=== PATIENT | female | born 1945 | race Caucasian/White ===

== ENCOUNTER 2019-08-18 14:43 | Inpatient (IN) | payer MEDICARE, OTHER ==
[~2019-08-18] VITALS: Ht 157.4 cm; Wt 71.7 kg
[2019-08-18] MEDS ORDERED: BISACODYL LAXATI5 MG PO (15:05)
[2019-08-18] MEDS ORDERED: NATURE'S BLEND F1 MG PO (15:07)
[2019-08-18] MEDS ORDERED: NEXIUM 24HR20 M2 PO (15:07)
[2019-08-18] MEDS ORDERED: LASIX20 MG PO (15:08)
[2019-08-18] MEDS ORDERED: LEVOTHYROXINE50 MCG PO (15:10)
[2019-08-18] MEDS ORDERED: LISINOPRIL20 MG PO (15:11)
[2019-08-18] MEDS ORDERED: METHOTREXATE2.5 M1 PO (15:13)
[2019-08-18] MEDS ORDERED: TREXALL5 MG PO (15:15)
[2019-08-18] MEDS ORDERED: DICYCLOMINE HCL10 MG PO (15:17)
[2019-08-18] MEDS ORDERED: ALL DAY RELIEF220 MG PO (15:18)
[2019-08-18] MEDS ORDERED: HYDROCODONE-AC1 EAC1 PO (15:21)
[2019-08-18] MEDS ORDERED: BASAG SOL SC (15:22)
[2019-08-18] MEDS ORDERED: REMERON15 M2 PO (15:24)
[2019-08-18] MEDS ORDERED: KLOR-CON 1010 ME1 PO (15:25)
[2019-08-18] MEDS ORDERED: REQUIP0.25 M1 PO (15:27)
[2019-08-18] MEDS ORDERED: VITAMIN D50000 UNIT PO (15:28)
[2019-08-18] MEDS ORDERED: DULCOLAX STOOL100 MG PO (15:31)
[2019-08-18] MEDS ORDERED: HYDROCORTISON28.4 G4 T (15:32)
[2019-08-18] MEDS ORDERED: METOPROLOL25 MG PO (15:33)
[2019-08-18] MEDS ORDERED: ROPINIROLE HY0.25 MG PO (15:34)
[2019-08-18] MEDS ORDERED: DEPAKOTE SPRIN125 MG PO (15:37)
[2019-08-18] MEDS ORDERED: NOVOLOG MIX 70/33 ML SC (15:42)
[2019-08-18 19:44] VITALS: BP 146/65
--- NOTE | 2019-08-18 19:44 | NUR ---
NICOLÁS GUTIERREZ a 73 year old F admitted VOLUNTARY via stretcher from the [facility] as a voluntary admission. Arrived on unit at 1944. ALLERGIES: LATEX, CYMBALTA, FLU VACCINE. Vital signs are: [id number] 146/65. The client signed the following forms with stated understanding: Authorization For The Release of Medical Information, Consent to Voluntary, Admission and Hospitalization, Consent and Release Forms/Receipt of Rights, Acknowledgement of Advance Directive Information, Behavioral Health Consent Form, and Informed Consent of Medications. Admitted under the services of Dr. DILEEP SAMUELS,[facility]. A search was conducted and hazardous articles were removed. Client was oriented to the unit. JOHNSON CHAN
[2019-08-18 20:00] VITALS: BP 146/65
--- NOTE | 2019-08-18 21:51 | NUR ---
HOSPITALIST CALLED AT [phone], UPDATED ON NEW ADMISSION AND MED REC COMPLETE READY FOR REVIEW. STATED TO PLACE CONSULT UNDER LYN AQUINO. NO OTHER ORDERS RECIEVED.
--- NOTE | 2019-08-18 23:00 | NUR ---
ON FLOOR, UPDATED PROVIDED. DR. ORLANDO ALSO NOTIFIED OF PATIENT USING O2 2L NC PRN AT HS, STATED TO CONTINUE ORDERED. ALSO UPDATED ON REDDENED AREA NOTED BELOW RIGHT EYE WITH SMALL PIN POINT OPENING OF: LENGTH-0.2, WIDTH-0.1, DEPTH <0.01. PT STATED SHE HAS HAD IT FOR A WHILE AND USUALLY PUTS WARM COMPRESSES ON IT. NO SIGNS OR SYMPTOMS OF INFECTION OR PAIN NOTED. REMAINING SKIN ASSESSMENT COMPLETED WITHOUT DIFFICULTY, NO OTHER OPEN AREAS OBSERVED. AWAITING WOUND ORDERS AT THIS TIME.
--- NOTE | 2019-08-19 00:36 | NUR ---
PT RECEIVED PRN TYLENOL 650MG PO REQUESTED FOR C/O OF PAIN IN LEGS AND BACK WITH RATING OF 8/10. NO OTHER COMPLAINTS NOTED.
--- NOTE | 2019-08-19 00:37 | NUR ---
PATIENT RECEIVED 3 UNITS FOR BSG OF 217 ORDERED PER AT THIS TIME.
--- NOTE | 2019-08-19 05:58 | NUR ---
PT COOPERATIVE WITH ADMISSION ASSESSMENT. PT ALERT AND ORIENTED X4. PT CALM WITH UNDERLYING IRRITABILITY STATING "THE NURSE AT THE OTHER FACILITY YELLED AT ME, SO I YELLED BACK, IT UPSET ME, SO THEY SENT ME HERE BECAUSE OF IT AND I GUESS TO HAVE MY MEDICATIONS ADJUSTED". PT AMBULATORY WITH A WALKER, GAIT STEADY, STAND BY ASSIST WITH ADLS. PT ABLE TO MAKE NEEDS KNOWN, CONTINENT OF BOWEL AND BLADDER. PT DENIES SUICIDAL IDEATIONS STATING "IM NOT SUICIDAL AT ALL BUT IF I DIDNT WAKE UP IN THE MORNING IM OKAY WITH THAT BECAUSE I WOULD BE WITH RITA AND THE ANGELS". PT CONTRACTED FOR SAFETY STATING "I KNOW I HAVE A HISTORY OF SUICIDE ATTEMPTS BUT I WOULDNT DO THAT AGAIN, THAT WAS A DIFFERENT TIME FOR ME, I WOULD NEVER HURT MYSELF, ILL GO WHEN GOD SAYS ITS MY TIME". PT DENIES HI, HALLUCINATIONS, AND DELUSIONS. NO PARANOIA OBSERVED. PT REFUSED HS DOSE OF REMERON STATING IT CAUSED HER TO HAVE HALLUCINATIONS IN THE PAST AND WILL NOT TAKE IT ANYMORE. PT COMPLIANT WITH REMAINING MEDICATIONS WITHOUT DIFFICULTY. BRACE LOCATED ON LEFT WRIST DUE TO A HX OF A FRACTURE IN FEBRUARY AND CARPEL TUNNEL PER PT, AWARE. SEE WOUND SCREEN FOR SKIN ASSESSMENT. NO ADDITIONAL COMPLAINTS OF PAIN NOTED SINCE ADMINISTRATION OF TYLENOL AT 0036, PRN EFFECTIVE. SLEPT APPROX 5 HOURS WITH X1 BRIEF AWAKENING. NO SIGNS OR SYMPTOMS OF DISTRESS NOTED.
[2019-08-19 07:32] LABS: BASO % 0.7 % (0.0-1.0); EOS # 0.1 10*3/uL (0.0-0.4); EOS % 2.6 % (1.0-4.0); HEMATOCRIT 31.1 % (37.0-47.0); HEMOGLOBIN 9.4 g/dl (12.0-16.0); LYMPH # 1.2 10*3/uL (1.3-4.4); LYMPH % 24.9 % (27.0-41.0); MEAN CELL VOLUME 95.4 fl (81.0-99.0); MEAN CORPUSCULAR HGB 28.8 pg (27.0-31.0); MEAN CORPUSCULAR HGB CONC 30.2 g/dl (33.0-37.0); MEAN PLATELET VOLUME 10.7 fl (9.6-12.3); MONO # 0.3 10*3/uL (0.1-1.0); MONO % 7.4 % (3.0-9.0); NEUT % 64.2 % (47.0-73.0); PLATELET COUNT AUTOMATED 125 10*3/uL (130-400); RED BLOOD COUNT 3.26 10*6/uL (4.10-5.10); RED CELL DISTRI WIDTH 14.7 % (0-14.5); WHITE BLOOD COUNT 4.6 10*3/uL (4.8-10.8)
[2019-08-19 08:00] VITALS: BP 148/77
--- NOTE | 2019-08-19 08:00 | NUR ---
Patient eating breakfast quietly with no c/o discomfort. Respirations easy and regular. Vital signs stable. No overt distress. AGUS HENDRICKSON
[2019-08-19 08:01] LABS: ALBUMIN 2.9 gm/dl (3.1-4.5); CREATININE 1.24 mg/dL (0.55-1.02); POTASSIUM 4.5 mmol/L (3.5-5.1); TOTAL PROTEIN 6.7 gm/dL (6.4-8.2)
[2019-08-19 08:10] LABS: THYROID STIM HORMONE (HS) 2.92 uIU/ml (0.358-4.75); VALPROIC ACID (DEPAKENE) 35.4 ug/ml (50-100)
--- NOTE | 2019-08-19 09:27 | NUR ---
PT APPEARS PREOCCUPIED WITH NURSE AT FACILITY AND OTHER RESIDENTS. PT STATES THAT "THIS ONE NURSE CAME INTO MY ROOM AND CALLED ME A PIECE OF CRAP AND SAID I THOUGHT I WAS BETTER THAN EVERYONE ELSE. SO I THINK THEY SENT ME HERE A COVER UP. LIT, THE DIRECTOR, WANTS ME TO APOLOGIZE BECAUSE HE SAID I SHOULDN'T RUIN HER 35 YEAR CAREER, BUT I JUST WANT TO SEE HER DISCIPLINED" PT ALSO STATES THAT "OTHER TENANTS GET MAD BECAUSE I LIVE IN AN APARTMENT, NOT JUST A ROOM, BUT THAT IS WHAT THEY OFFERED ME, SO THEY MAKE SMART REMARKS TO ME IN THE HALLWAY. THEY ARE MAD THAT I HAVE A SCOOTER, TOO". PT PROVIDED WITH EMOTIONAL SUPPORT, ENCOURAGED TO COME OUT OF ROOM AND PARTICIPATE IN GROUP THERAPY/ACTIVITY. PT REASSURED OF SAFETY. PT STATES SHE FEELS OK, SHE IS JUST GLAD SHE ISN'T BEING YELLED AT. PT STATES SHE IS TIRED AND WILL THINK ABOUT COMING TO GROUP. WILL CONTINUE TO PROVIDE 1:1 FOR EMOTIONAL SUPPORT. WILL CONTINUE TO REASSURE PT OF SAFETY. WILL CONTINUE TO MONITOR PT'S MOOD. WILL CONTINUE Q15 MIN MONITORING FOR SAFETY.
--- NOTE | 2019-08-19 10:11 | NUR ---
DR. HAMILTON MADE AWARE OF PT'S ALLERGY TO HYDROCODONE, PT IS ON NORCO TID.
--- NOTE | 2019-08-19 10:15 | NUR ---
MSG LEFT FOR DORCAS ROGEL RE: PT ADMISSION
--- NOTE | 2019-08-19 11:20 | NUR ---
DR. MCCAULEY OK'D PT TO HAVE AMITY D/T PT RECEIVING IT AT FACILITY, PT STATES SHE HAS HAD NO ISSUES.
--- NOTE | 2019-08-19 12:00 | NUR ---
AM GROUP/EXERCISES/MUSIC/GAMES PT ENCOURAGED TO ATTEND BUT IN BED AND STATES "I'M WAITING ON SOME PAIN MEDICINE I WILL TRY TO COME TO GROUP AFTER I FEEL BETTER" PT ATTENDED LAST FEW MINUTES OF GROUP SINGING ALONG TO MUSIC. PT ACTIVITY ASSESSMENT WILL BE COMPLETED THIS AFTERNOON. PT WILL CONTINUE TO BE ENCOURAGED TO ATTEND AND PARTICIPATE IN FUTURE GROUP SESSIONS.
[2019-08-19 13:12] LABS: BILIRUBIN NEGATIVE (NEGATIVE); BLOOD NEGATIVE (NEGATIVE); CLARITY CLEAR (CLEAR); COLOR YELLOW (YELLOW); GLUCOSE NEGATIVE (NEGATIVE); KETONE NEGATIVE (NEGATIVE); LEUKO ESTERASE TRACE (NEGATIVE); NITRITE NEGATIVE (NEGATIVE); SPECIFIC GRAVITY 1.015 (1.005-1.030); UROBILINOGEN 0.2 E.U./dl (0.2-1.0)
[2019-08-19 13:24] LABS: BACTERIA TRACE
--- NOTE | 2019-08-19 15:54 | NUR ---
PM GROUP/CRAFTS/MUSIC PT ATTENDED AND PARTICIPATED IN GROUP. PT PLEASANT AND ON TASK WITH NO PARANOIA OR DEPRESSION EXPRESSED AT THIS TIME. PT WILL CONTINUE TO ATTEND AND PARTICIPATE IN FUTURE GROUP SESSIONS.
--- NOTE | 2019-08-19 16:48 | NUR ---
DR. HAMILTON MADE AWARE THAT PT WOULD LIKE SOMETHING FOR BREAKTHROUGH PAIN OTHER THAN TYLENOL. STATES HE WILL TALK TO DR. MCCAULEY AND CALL BACK.
--- NOTE | 2019-08-19 17:17 | NUR ---
PSYCHOSOCIAL HISTORY COMPLETED THIS DATE.
[2019-08-19 20:02] VITALS: BP 143/75
--- NOTE | 2019-08-20 02:21 | NUR ---
NO ADVERSE BEHAVIORS NOTED. PT ALERT AND ORIENTED X4. PT CALM, COOPERATIVE, AND INTERACTIVE. DURING 1:1 PATIENT STATED "IM DOING A LOT BETTER TODAY, I HAD A GOOD DAY, EVERYONE IS SO NICE HERE". PT DENIES SI/HI AND HALLUCINATIONS, NO NOTED RESPONDING TO INTERNAL STIMULI. NO PARANOIA/DELUSIONS OBSERVED. PT MEDICATION COMPLIANT EXCEPT FOR HS DOSE OF REMERON, EDUCATION PROVIDED. PT C/O BACK WITH A RATING OF 8/10, RECEIVED ROUTINE NORCO. NO OTHER PHYSICAL COMPLAINTS VOICED. PT CURRENTLY LAYING DOWN WITH EYES CLOSED, RESPIRATIONS EASY AND REGULAR, NO SIGNS OR SYMPTOMS OF DISTRESS NOTED. PLAN IS TO CONTINUE TO MONITOR MOODS AND BEHAVIORS. PROVIDE 1:1 WITH SUPPORT NEEDED. ENCOURAGE MEDICATION COMPLIANCE AND EDUCATE. MAINTAIN Q 15 MIN CHECKS.
--- NOTE | 2019-08-20 03:44 | NUR ---
24 HOUR CHART CHECK COMPLETED.
--- NOTE | 2019-08-20 05:47 | NUR ---
PATIENT OBSERVED ON Q 15 MIN CHECKS TO HAVE SLEPT THROUGHOUT THE NIGHT WITH NO AWAKENINGS OR SIGNS AND SYMPTOMS OF DISTRESS NOTED.
[2019-08-20 07:21] LABS: BASO % 0.5 % (0.0-1.0); EOS # 0.1 10*3/uL (0.0-0.4); EOS % 1.9 % (1.0-4.0); HEMATOCRIT 33.2 % (37.0-47.0); HEMOGLOBIN 10.2 g/dl (12.0-16.0); LYMPH # 1.5 10*3/uL (1.3-4.4); LYMPH % 25.3 % (27.0-41.0); MEAN CELL VOLUME 95.7 fl (81.0-99.0); MEAN CORPUSCULAR HGB 29.4 pg (27.0-31.0); MEAN CORPUSCULAR HGB CONC 30.7 g/dl (33.0-37.0); MEAN PLATELET VOLUME 10.9 fl (9.6-12.3); MONO # 0.4 10*3/uL (0.1-1.0); MONO % 7.5 % (3.0-9.0); NEUT # 3.8 10*3/uL (2.3-7.9); NEUT % 64.3 % (47.0-73.0); PLATELET COUNT AUTOMATED 146 10*3/uL (130-400); RED BLOOD COUNT 3.47 10*6/uL (4.10-5.10); WHITE BLOOD COUNT 5.9 10*3/uL (4.8-10.8)
[2019-08-20 07:32] LABS: CREATININE 1.15 mg/dL (0.55-1.02); POTASSIUM 4.2 mmol/L (3.5-5.1)
--- NOTE | 2019-08-20 08:07 | NUR ---
PT AWAKE, ALERT AND VERBAL. RESPS EASY AND EVEN ON ROOM AIR. EATING BREAKFAST WITH PEERS IN DINING ROOM AT THIS TIME. KAREN PMHNP-BC ON UNIT TO SEE PT AT THIS TIME, UPDATE GIVEN.
[2019-08-20 08:50] VITALS: BP 134/58; BP 140/72
--- NOTE | 2019-08-20 18:38 | NUR ---
PRN TYLENOL 650MG PO GIVEN AT THIS TIME PER PT REQUEST FOR C/O CHRONIC PAIN, WILL MONITOR FOR EFFECTIVENESS.
--- NOTE | 2019-08-20 18:47 | NUR ---
NO ADVERSE MOOD OR BEHAVIORS DISPLAYED THIS SHIFT. PT IS ALERT AND ORIENTED X4. MEMORY APPEARS TO BE INTACT. RESPS EASY AND EVEN ON ROOM AIR. MOOD APPEARS STABLE WITH APPROPRIATE AFFECT. PT IS CALM, PLEASANT AND COOPERATIVE. PT STATES SHE IS IN THE HOSPITAL BECAUSE SHE "HAD A FALLING OUT WITH A NURSE AT THE HOME". PT STATES "I GUESS I'M GOING TO HAVE TO TAKE THE BLAME FOR IT. YOU KNOW, I READ MY BIBLE AND I BELIEVE IN GOD, SO I'LL BE HUMBLE AND TAKE THE FALL FOR IT". PT DENIES FEELING SAD OR DEPRESSED. PT DENIES HOPELESSNESS. DENIES SI/HI, INTENT OR PLAN. PT DENIES HALLUCINATIONS, NO RESPONSE TO INTERNAL STIMULI NOTED. NO PARANOIA OR DELUSIONS NOTED. MEDICATION COMPLIANT WITHOUT DIFFICULTY. AMBULATORY, GAIT STEADY WITH ASSIST OF WHEELED WALKER. NO DISTRESS NOTED. PLAN TO CONTINUE CURRENT TREATMENT, CONTINUE TO MONITOR MOOD AND BEHAVIORS, PROVIDE APPROPRIATE REORIENTATION, REDIRECTION AND 1:1 NEEDED. CONTINUE TO ENCOURAGE MEDICATION COMPLIANCE WELL GROUP ATTENDANCE AND PARTICIPATION.
[2019-08-20 20:00] VITALS: BP 146/59
--- NOTE | 2019-08-20 22:04 | NUR ---
P--DENIAL, PARANOID, PERSECUTORY I--DISCUSSED THE DAY. REVIEWED COPING TECHNIQUES. DENIES S/I. DISCUSSED MEDICATIONS. COVERED BSG OF 246 WITH 3 UNITS ORDERED R--I AM FINE. I JUST DON'T KNOW WHY I GOT SENT HERE JUST BECAUSE OF THAT NURSE. P--CONTINUE TO MONITOR. ENCOURAGE HER TO DISCUSS FEELINGS WITH STAFF. MONITOR FOR CHANGE IN BEHAVIOR/MOOD
--- NOTE | 2019-08-21 04:55 | NUR ---
24 HR chart check completed.
--- NOTE | 2019-08-21 07:55 | NUR ---
NICOLÁS GUTIERREZ [id number] Please refer to the physician's history and physical for past medical history, comorbid conditions, and allergies. Diagnosis: BIPOLAR WITH MIXED PSYCHOTIC FEATURES Reji Score: 19,LOW OR NO RISK WOUND DESCRIPTIONS: Wound Number: 1 Location of the wound: RIGHT EYE BOTTOM EYE LID Thickness: Partial Size: 0.1cm X 0.1cm X 0.1cm Tunneling: NONE Undermining: NONE Sinus Tract: NONE Presence of Exudate: None Amount: None Color: Red Odor: None Periwound Skin Appearance: Edema Wound edges: APPROXIMATED Pain (associated with wound): TENDER TO TOUCH How does patient state this happened? PATIENT STATES THAT SHE HAS HAD THIS AREA "FOR A FEW DAYS." Surface the patient is resting on: Proform SKIN PREVENTION RECOMMENDATION: 1. Pressure redistribution support surface as appropriate 2. Elevate heels 3. Remove boots/TEDS every shift and reapply 4. Head of bed 30 degrees as tolerated 5. Assess nutrition and hydration 6. Manage moisture 7. Avoid the use of containment devices while in bed 8. Use absorptive products on surfaces limit layers of linens on bed 9. Turn and reposition every 1-2 hours in bed and every 1 hour in chair as tolerated 10. Weight shifts every 15 minutes while up in chair 11. Offloading with pillows or device to keep heels elevated off bed 12. Monitor skin at least every shift 13. Inspect under medical devices twice a day WOUND TREATMENT RECOMMENDATIONS: WARM COMPRESSES FOR FIVE TO TEN MINUTES FOUR TIMES A DAY.
[2019-08-21 07:58] VITALS: BP 153/67
--- NOTE | 2019-08-21 08:15 | NUR ---
PHYSICAL THERAPY Screen received as well as orders for PT will follow thank you Damari Lucero PT
--- NOTE | 2019-08-21 08:15 | NUR ---
Treatment Plan meeting was held this a.m. with Dr. Bullard, RN, AT, [employer] and Trimming Operator. Plan for discharge Wednesday/Wed. Pt. is Resident of [place] [facility]. Will reach out to facility today to discuss discharge Planning.
--- NOTE | 2019-08-21 08:38 | NUR ---
Nursing screen and Occupational Therapy referral received. Thank you. Aminah Pyle OTR/L
--- NOTE | 2019-08-21 08:39 | NUR ---
Dr. Villeda stated to put wound care recommendations in the hospitalist office for Dr. Grigsby.
--- NOTE | 2019-08-21 09:15 | NUR ---
ON UNIT TO SEE PT AT THIS TIME.
--- NOTE | 2019-08-21 11:43 | NUR ---
AM GROUP/EXERCISE AND CURRENT EVENTS PT ATTENDED MORNING GROUP THERAPY AND PARTICIPATED IN ALL ACTIVITIES. PT EXHIBITED PARANOIA WHILE IN GROUP. PT WAS TALKATIVE AND ON TASK.
--- NOTE | 2019-08-21 11:45 | NUR ---
Occupational Therapy evaluation completed on 3 with full eval to follow. Precautions include 3N unit precautions, h/o left wrist fracture in February and awaiting carpal tunnel surgery in Sep 2019,right rotator cuff injury with limited ROM, ww use, left wrist support. Recommend OT for consistant ADL performance, ww safety in ADLs to enable return to [facility]. Thank you. Surinder Pyle OTR/L
--- NOTE | 2019-08-21 13:48 | NUR ---
SPEECH PATHOLOGY Clinical swallowing evaluation completed as per orders due to history of dysphagia. Patient's medical history includes MS, COPD, bipolar with psychotic features, DM, dysphagia. Patient receives a regular diet and thin liquid. She was alert and cooperative and endorsed difficulty swallowing pills. She stated that she was evaluated in another facility and told to swallow her pills with applesauce and has noted no problems with that method. She was observed during lunchtime meal. patient was able to feed herself and consumed a variety of solids. Patient displayed no overt difficulty with food or liquid. Staff reports that she has been taking meds in applesauce and without problem. Recommend patient remain on present diet. No follow up therapy is recommended. Results and alice. were shared with patient and nurse and they verbalized understanding. Refer to report in [employer] for further information. Thank you for this referral. [address] [facility]-DRY SANDER
--- NOTE | 2019-08-21 14:02 | NUR ---
NO ADVERSE MOOD OR BEHAVIORS DISPLAYED THIS SHIFT. PT IS ALERT AND ORIENTED X4. MEMORY APPEARS TO BE INTACT. RESPS EASY AND EVEN ON ROOM AIR. MOOD APPEARS STABLE WITH APPROPRIATE AFFECT. PT IS CALM, PLEASANT AND COOPERATIVE. POSITIVE INTERACTIONS NOTED WITH BOTH STAFF AND PEERS. PT DENIES FEELING SAD OR DEPRESSED. PT DENIES HOPELESSNESS. DENIES SI/HI, INTENT OR PLAN. PT DENIES HALLUCINATIONS, NO RESPONSE TO INTERNAL STIMULI NOTED. NO PARANOIA OR DELUSIONS NOTED. MEDICATION COMPLIANT WITHOUT DIFFICULTY. AMBULATORY, GAIT STEADY WITH ASSIST OF WHEELED WALKER. NO DISTRESS NOTED. PLAN TO CONTINUE CURRENT TREATMENT, CONTINUE TO MONITOR MOOD AND BEHAVIORS, PROVIDE APPROPRIATE REORIENTATION, REDIRECTION AND 1:1 NEEDED. CONTINUE TO ENCOURAGE MEDICATION COMPLIANCE WELL GROUP ATTENDANCE AND PARTICIPATION.
--- NOTE | 2019-08-21 15:14 | NUR ---
Left Message for Liset Moran at [facility] to Discuss Discharge Plans.
--- NOTE | 2019-08-21 15:39 | NUR ---
Individual time spent with pt this afternoon. Pt was pleasant as she shared about the events which brought her to [facility]. Pt spoke of wanting to return to independent living and that her Waiver vocational case manager is working on this for her. Pt shared about her divorce years ago and recent of her exhusband and two cousins with whom pt was close. Pt also spoke of her son and their estranged relationship. Pt was tearful during this time but then spoke of her Muslim adolfo and her belief that God is in control. Pt did not voice paranoid delusions during conversation. Pt was tearful but appropriately so as pt was talking about loss in her life.
--- NOTE | 2019-08-21 15:45 | NUR ---
PM GROUP/WREATHS PT DID NOT ATTEND AFTERNOON GROUP THERAPY. PT WAS IN BED NAPPING.
--- NOTE | 2019-08-21 17:31 | NUR ---
PRN TYLENOL 650MG PO GIVEN AT THIS TIME PER PT REQUEST FOR C/O CHRONIC PAIN ALL OVER RATED LEVEL 8/10 ON PAIN SCALE. WILL MONITOR FOR MEDICATION EFFECTIVENESS.
--- NOTE | 2019-08-21 18:53 | NUR ---
TYLENOL EFFECTIVE. PT VOICES NO FURTHER C/O AT THIS TIME.
[2019-08-21 19:38] VITALS: BP 143/62
--- NOTE | 2019-08-21 19:39 | NUR ---
24 HR chart check completed.
--- NOTE | 2019-08-21 20:46 | NUR ---
EVENING/GAMES/MUSIC/CRAFTS PT IN ATTENDANCE AND PARTICIPATING. PT PLEASANT AND ON TASK. PT JOKING AND LAUGHING WITH PEERS. PT EXPRESSES NO PARANOIA, ISOLATION, OR DEPRESSION AT THIS TIME. PT WILL CONTINUE TO ATTEND AND PARTICIPATE IN FUTRUE GROUP SESSIONS.
--- NOTE | 2019-08-21 21:05 | NUR ---
PT HAS BEEN SITTING IN THE DINING ROOM & PARTICIPATED IN RECREATIONAL THERAPY. SOCIALIZING, LAUGHING & JOKING WITH SELECT PEERS. STABLE MOOD. ALERT & ORIENTED X 4. PLEASANT DURING INTERACTIONS. STATED THAT SHE NEEDS TO LEAVE TOMORROW SHE HAS ALOT TO DO FOR THE HOLIDAY. "SHOPPING, [employer], A [employer] PARTY THATS COMING UP & HAS TO GET HER HAIR DONE.". ATE SNACK. HS BEDSIDE GLUCOSE WAS 205. COMPLIANT WITH MEDICATIONS. AMBULATES INDEPENDENTLY WITH ASISTANCE OF A WALKER. CONTINENT OF URINE. 1 STAFF ASSIST FOR STAND BY.
--- NOTE | 2019-08-22 04:22 | NUR ---
Upon discharge recommend patient to follow up for wound care in outpatient setting continue current wound care orders at discharging facility.
--- NOTE | 2019-08-22 05:26 | NUR ---
PT HAS SLEPT QUIETLY PAST 2200 WITH 2 BRIEF AWAKENINGS TO GO TO THE BATHROOM.
--- NOTE | 2019-08-22 06:36 | NUR ---
AM BEDSIDE GLUCOSE 234
--- NOTE | 2019-08-22 07:40 | NUR ---
OT NOTE Pt was seen this A.M. 1:1 for 20 minute OT session with WHITEWASHER and nursing staff present for observation only. Upon arrival pt was sitting upright in the dining room. Pt identified by name and and had no complaints at this time. Sit to stand completed from chair level with CGA for safety. Functional mobility was then completed into the bathroom with SBA and use of w/w. There she transferred on/off standard commode with SBA and use of grab bar for UE support. She then stood sink side while washing her hands, face, and completed hair care with SBA. Then challenged pt's static standing tolerance needed for increased I in self care tasks and functional transferred. Pt was able to tolerate aprox 5 minutes at a time before sitting due to fatigue. Pt was left sitting upright in the dining room under [facility] staff supervision. COntinue with rec D/C plan to return to [facility]. VELMA Ruffin/Eloy
[2019-08-22 07:41] VITALS: BP 160/81
--- NOTE | 2019-08-22 08:15 | NUR ---
Treatment Plan meeting was held with Nurse Practitioner, RN, AT, SIMAS and Sewer Head. Plan for discharge today. Pt. to return to [facility]. Call placed to facility to notify of discharge. Spoke with Celia. Provided with Updates.
--- NOTE | 2019-08-22 08:20 | NUR ---
DENNISE MARTINEZ ON UNIT TO SEE PATIENT
[2019-08-22] MEDS ORDERED: ABILIFY5 MG PO (10:48)
[2019-08-22] MEDS ORDERED: BRIN10TA PO (10:48)
--- NOTE | 2019-08-22 11:14 | NUR ---
PATIENT DISCHARGED BACK TO ASSISTED LIVING. PATIENT STABLE AT DISCHARGE PATIENT WITH BELONGINGS AT DISCHARGE. MEDICATIONS RETURNED TO PHARMACY. PATIENT TRANSPORTED BY [facility]
--- NOTE | 2019-08-22 11:47 | NUR ---
Discharge Paperwork Faxed to [facility].
--- NOTE | 2019-08-22 11:53 | NUR ---
Patient discharged today returning to [facility]. Follow-up will be with Dr Bullard, visiting psychiatrist. While at [facility], pt did not exhibit any inappropriate behaviors. She was pleasant and cooperative with staff and peers. Patient did participate in programming.
--- NOTE | 2019-08-23 15:23 | NUR ---
OCCUPATIONAL THERAPY CO-SIGN I approve of the Occupational Therapy notes written above. RAJ RODRIGUEZ OTR/Eloy
== END 2019-08-22 10:51 | disposition home or self-care (01) | DRG 885 ==
LOC: 3N 14:43
PROVIDERS: Family Medicine; ADMIT Psychiatry & Neurology Psychiatry
DX: F31.64 Bipolar disorder, current episode mixed, severe, with psychotic features (principal); M81.0 Age-related osteoporosis without current pathological fracture; N18.9 Chronic kidney disease, unspecified; E11.22 Type 2 diabetes mellitus with diabetic chronic kidney disease; F63.9 Impulse disorder, unspecified; G35 Multiple sclerosis; J44.9 Chronic obstructive pulmonary disease, unspecified; G89.29 Other chronic pain; E53.9 Vitamin B deficiency, unspecified; R13.10 Dysphagia, unspecified; M79.7 Fibromyalgia; E03.9 Hypothyroidism, unspecified; Z80.9 Family history of malignant neoplasm, unspecified; Z82.49 Family history of ischemic heart disease and other diseases of the circulatory system; Z81.8 Family history of other mental and behavioral disorders; Z88.1 Allergy status to other antibiotic agents; Z91.040 Latex allergy status; Z88.5 Allergy status to narcotic agent; Z88.8 Allergy status to other drugs, medicaments and biological substances; Z91.018 Allergy to other foods; Z79.4 Long term (current) use of insulin; Z90.49 Acquired absence of other specified parts of digestive tract; Z98.49 Cataract extraction status, unspecified eye; Z90.710 Acquired absence of both cervix and uterus; Z83.3 Family history of diabetes mellitus; Z79.899 Other long term (current) drug therapy